=== PATIENT | male | born 1980 | race Caucasian/White ===

== ENCOUNTER 2021-10-03 08:53 | Emergency (ER) | payer BC, SELFPAY ==
--- NOTE | ~2021-10-03 | XR_ITS ---
XR chest 1V portable DATE: 10/03/2021 10:33 INDICATION: Cough, shortness of breath TECHNIQUE: Portable upright AP chest on 10/03/2021 at 1027 hours COMPARISON: 02/18/2015 PA and lateral views FINDINGS: No pulmonary infiltrate or consolidation, pleural effusion or pulmonary vascular congestion or pneumothorax is detected. Heart size appears within normal limits. Included skeletal structures are unremarkable other than mild degenerative spurring and levoscoliosis of the thoracic spine. IMPRESSION: No active cardiopulmonary disease Reviewed, dictated and finalized at location B.
[2021-10-03 09:01] VITALS: BP 107/81; PULSE 62; RESP 16; TEMP 36.3; O2SAT 100
[2021-10-03 09:10] VITALS: PULSE 62
[2021-10-03 09:13] VITALS: O2SAT 97
--- NOTE | 2021-10-03 09:28 | ECG_ITS ---
Measurements Intervals [place] Rate: 63 P: 38 W[place]: 122 QRS: 9 QRSD: 89 T: 12 QT: 389 QTc: 400 Interpretive Statements SINUS RHYTHM VOLTAGE CRITERIA FOR LVH BORDERLINE ECG Electronically Signed On 10-03-2021 16:42:18 CDT by Josesito Ayala D.O.
[2021-10-03] MEDS: SODIUM CHLORIDE 0.9% IV 1,000 ML 999 ML IV CONT (09:38)
[2021-10-03 09:52] LABS: Basophils Percent Auto 0.3 % (0.2-1.2); Eosinophils Percent Auto 0.5 % (0-4.4); Hematocrit 44.9 % (42.0-52.0); Hemoglobin 15.1 g/dL (14.0-18.0); Immature Granulocyte Absolute 0.01 K/mm3 (0.00-0.031); Immature Granulocyte Percent A 0.1 % (0-0.5); Lymphocytes Absolute Auto 2.44 K/mm3 (0.9-3.2); Lymphocytes Percent Auto 28.3 % (18.3-44.2); Mean Corpuscular HGB Conc 33.6 g/dl (32-36); Mean Corpuscular Hemoglobin 30.4 pg (26-34); Mean Corpuscular Volume 90.5 fl (80-100); Mean Platelet Volume 11.2 fl (7.4-10.4); Monocytes Absolute Auto 1.3 K/mm3 (0.1-0.6); Monocytes Percent Auto 14.5 % (2.6-8.5); Neutrophils Absolute Auto 4.8 K/mm3 (1.3-6.7); Neutrophils Percent Auto 56.3 % (45.5-73.1); Platelet Count Result 213 k/mm3 (150-375); Red Blood Count 4.96 M/mm3 (4.6-6.20); Red Cell Distribution Width 13.1 % (11.5-14.5); White Blood Count 8.6 K/mm3 (4.5-10.0)
[2021-10-03] MEDS: ALBUTEROL SULFATE (*SP) AEROSOL 1 PUFF 2 PUFF INHALATION (09:57)
[2021-10-03 10:02] LABS: Prothrombin Time 12.9 Seconds (11.1-14.7)
[2021-10-03 10:03] LABS: Alanine Aminotransferase 33 U/L (6-50); Albumin Level 4.6 g/dL (3.5-5.1); Alkaline Phosphatase 48 U/L (38-126); Anion Gap 5 mmol/L (8-16); Aspartate Amino Transferase 33 U/L (17-59); Bilirubin,Total 0.5 mg/dL (0.2-1.3); Blood Urea Nitrogen 14 mg/dL (9-20); Calcium 9.8 mg/dL (8.4-10.2); Carbon Dioxide 31 mmol/L (22-30); Chloride 103 mmol/L (98-107); Estimated CRCL calculation 70 ml/min; Estimated Glomerular Filt Rate > 60; Glucose 103 mg/dL (65-110); Partial Thromboplastin Time 26.6 SECONDS (22.3-36.8); Potassium 4.1 mmol/L (3.4-5.0); Sodium 139 mmol/L (137-145)
[2021-10-03 10:05] VITALS: PULSE 64; RESP 18
[2021-10-03 10:06] LABS: D Dimer 0.41 ug/mL (<0.48)
[2021-10-03 10:14] LABS: Alveolar/Arterial O2 Gradient 16.8 mmHg; Base Excess ABG -0.6 mEq/l (+/-2.0); Carboxyhemoglobin 0.6 % THb (0-2.0); Fractional Inspired Oxygen 21 %; HCO3 ABG 23.9 mEq/l (22.0-26.0); Methemoglobin ABG 0.1 %THb (0-1.5); Oxygen Content ABG 19.4 %vol (16.0-22.0); Oxygen Saturation ABG 96.6 % (95.0-100.0); Oxyhemoglobin 95.6 % THb (90.0-100.0); PCO2 ABG 38.8 mmHg (35.0-45.0); PO2 ABG 86.5 mmHg (80.0-100.0); PO2 FiO2 Ratio Arterial Blood 4.12 %; Reduced Hemoglobin 3.7 %THb (0-5.0); Total Hemoglobin 14.4 g/dL (12.0-18.0); pH ABG 7.407 (7.350-7.450)
[2021-10-03 10:15] LABS: Troponin I < 0.012 ng/mL (0.000-0.034)
[2021-10-03 10:15] LABS: Device ROOM AIR; Modified Allen's Test Pass; Site Drawn RIGHT RADIAL
[2021-10-03 10:20] VITALS: BP 121/85; PULSE 68; RESP 22; O2SAT 97
--- NOTE | 2021-10-03 11:19 | ED.SOB ---
HPI - SOB/Dyspnea General Chief Complaint: Shortness of Breath/Dyspnea Stated Complaint: + COVID, labored breathing Time Seen by Provider: 10/03/21 09:09 Source: patient and RN notes reviewed Mode of arrival: ambulatory Limitations: no limitations History of Present Illness HPI Narrative: This is a 41 year old male with history of PTSD , anxiety and depression who presents for evaluation of shortness of breath. Patient has been having body aches, fatigue, cough, congestion since Wednesday. He tested positive for covid with an at home test yesterday. Today he was walking down the stairs and he started coughing bad. He reports he was feeling short of breath at that time. She has chest pain on deep inspiration. He reports cough is productive with yellow phlegm. He denies nausea , vomiting, diarrhea. He has received covid vaccination and booster. Related Data Home Medications Medication Instructions Recorded Confirmed buspirone 15 mg 1XD 10/03/21 10/03/21 escitalopram oxalate 20 mg tablet mg 10/03/21 Allergies Allergy/AdvReac Type Severity Reaction Status Date / Time Penicillins Allergy Unknown Unknown Verified 10/03/21 09:08 Review of Systems Review of Systems: All systems reviewed & are unremarkable except as noted in HPI and below Constitutional: Constitutional: Reports chills and Reports fatigue Eyes: Eyes: Denies change in vision ENT: Denies dizziness, Reports nasal congestion and Denies sore throat Cardiovascular: Cardiovascular: Reports chest pain, Denies rapid heart rate and Denies radiating jaw, neck or arm pain Respiratory: Respiratory: Reports chest congestion, Reports cough, Reports dyspnea and Denies wheezing Gastrointestinal: Gastrointestinal: Denies abdominal pain, Denies nausea and Denies vomiting [facility] Past Medical History Medical History (Updated 10/03/21 @ 11:37 by Angelia Thomas MD) Anxiety Depression PTSD (post-traumatic stress disorder) Surgical History Surgical History (Updated 10/03/21 @ 11:33 by Angelia Thomas MD) No pertinent past surgical history Social History Social History (Updated 10/03/21 @ 11:33 by Angelia Thomas MD) Smoking status: Never smoker Alcohol intake: current Substance use: never Exam Const: General: alert Orientation/consciousness: patient oriented x3 Limitations: no limitations Other: appears to not feel well, but nontoxic appearing HENMT: Head: normal to inspection Ears: external ears normal Face and sinus: normal facial exam Mouth: Yes Normal oral and palatal mucosa present Throat: posterior oropharynx normal Eyes: Pupils: Equal, round and reactive pupils present EOM: EOMs intact bilaterally Chest: Chest palpation & inspection: normal inspection of the chest Resp: Effort & Inspection: normal respiratory effort Auscultation: clear to auscultation bilaterally and breath sounds present Cardio: Rate: regular rate Rhythm: regular rhythm Heart sounds: no murmurs GI: GI Palp: Yes Soft to palpation, No Tenderness to palpation present (GI), No Guarding due to palpation present (GI) and No Rigid due to palpation Auscultation: normal bowel sounds Back/Spine/Pelvis: Back: no CVA tenderness Skin: General skin exam: normal color Rashes: no rashes Neuro: General: patient oriented x3 and CN's II-XI intact bilaterally Cranial nerves: Yes Nystagmus not present Speech: normal speech Psych: Mental Status: mental status grossly normal Affect: normal affect Attitude: cooperative Course Reevaluation(s) Reevaluation #1: I Discussed with patient that labs are unremarkable. Chest xray does not show pneumonia. He was given albuterol MDI. I Discussed discharge plan. He was able to ambulate without distress. Oxygen saturation remained above 92%. Date: 10/03/21 Time: 11:34 Vital Signs Vital signs: Vital Signs Temperature 97.3 F L 10/03/21 09:01 Pulse Rate 62 10/03/21 09:01 Respiratory Rate 16 10/03/21 0
[2021-10-03 11:49] VITALS: BP 138/78; PULSE 62; RESP 17; O2SAT 98
== END 2021-10-03 11:51 | disposition home or self-care (01) ==
PROVIDERS: Emergency Provider General Practice
DX: U07.1 COVID-19 (principal); F43.10 Post-traumatic stress disorder, unspecified; F41.9 Anxiety disorder, unspecified; F32.A Depression, unspecified
CPT/HCPCS: 36415; 36600; 71045; 80053; 82375; 82805; 83050; 84484; 85025; 85380; 85610; 85730; 93005; 94640; 99284; A9270; J7030

== ENCOUNTER 2022-08-06 14:12 | Emergency (ER) | payer BC, SELFPAY ==
[2022-08-06 14:13] VITALS: BP 119/84; PULSE 69; RESP 16; TEMP 36.4; O2SAT 100
--- NOTE | 2022-08-06 15:24 | ED.LOWEXIN ---
HPI - Extremity Injury (Lower) General Chief Complaint: Extremity Injury, Lower Stated Complaint: right knee pain Time Seen by Provider: 08/06/22 14:28 History of Present Illness HPI Narrative: 42-year-old male reports for evaluation of right knee pain after an injury that occurred 1 week ago. Patient states he was cutting a tree branch while on a ladder, the branch began to fall and hit the medial aspect of his knee and distal thigh. Patient states since then he has had increased pain with squatting and in a [id number] position. He denies difficulty walking, fever, swelling, paresthesias. States he did not encounter a popping sensation and does not think he dislocated his knee. Denies other injury required in the fall. States he is up-to-date on his tetanus. Related Data Home Medications Medication Instructions Recorded Confirmed buspirone 15 mg 1XD 10/03/21 10/03/21 escitalopram oxalate 20 mg tablet mg 10/03/21 Allergies Allergy/AdvReac Type Severity Reaction Status Date / Time Penicillins Allergy Unknown Unknown Verified 08/06/22 14:12 Review of Systems Review of Systems: CONSTITUTIONAL: Denies fever, chills EYES: Denies visual changes, redness, or discharge. ENT: Denies rhinorrhea, congestion, sore throat, or otalgia. CARDIOVASCULAR: Denies chest pain, palpitations, or edema. RESPIRATORY: Denies cough or dyspnea. GASTROINTESTINAL: Denies abdominal pain, nausea, vomiting, or diarrhea. GENITOURINARY: Denies dysuria or hematuria. SKIN: Denies rash or itching. MUSCULOSKELETAL: See HPI NEUROLOGIC: Denies headache, numbness, dizziness, or weakness. PSYCHIATRIC: Denies anxiety or depression. [facility] Past Medical History Medical History Anxiety Depression PTSD (post-traumatic stress disorder) Surgical History Surgical History No pertinent past surgical history Social History Social History Smoking status: Never smoker Alcohol intake: current Substance use: never Exam Narrative: GENERAL: Well-appearing, in no acute distress. HEAD: Normocephalic NECK: Supple. CHEST: No respiratory distress. Clear to auscultation, no adventitious breath sounds. HEART: Regular rate and rhythm. No murmur heard. Normal peripheral pulses. ABDOMEN: Soft, nontender, normal active bowel sounds. EXTREMITIES: RLE: Tenderness to the lateral joint line of the knee. Tenderness to the proximal tibia and tibial tuberosity with mild overlying yellow ecchymosis. Full range of motion of knee. Negative anterior posterior drawer. No laxity with varus or valgus stress. No tenderness to remainder of knee. DP pulse 2+. Cap refill less than 2. Sensation intact. Patient ambulatory without difficulty. SKIN: Warm, dry, no rash. NEURO: No focal deficits. Alert and oriented x3. PSYCH: Normal mood and affect. Course Vital Signs Vital signs: Vital Signs Temperature 97.5 F L 08/06/22 14:13 Pulse Rate 69 08/06/22 14:13 Respiratory Rate 16 08/06/22 14:13 Blood Pressure 119/84 08/06/22 14:13 Pulse Oximetry 100 08/06/22 14:13 Oxygen Delivery Room Air 08/06/22 14:13 Temperature 97.5 F L 08/06/22 14:13 Pulse Rate 69 08/06/22 14:13 Respiratory Rate 16 08/06/22 14:13 Blood Pressure 119/84 08/06/22 14:13 Pulse Oximetry 100 08/06/22 14:13 Oxygen Delivery Room Air 08/06/22 14:13 MDM - Extremity Injury (Lower) MDM Narrative Medical decision making narrative: 42-year-old male reports for evaluation of right knee pain after he injured it 1 week ago while cutting down a tree and the branch hit the medial aspect of his right knee. Vitals stable. Exam reveals tenderness to the lateral joint line and proximal tibia with overlying healing ecchymosis to the tibia. He is neurovascularly intact. Ligamentous exams normal.
== END 2022-08-06 15:38 | disposition home or self-care (01) ==
PROVIDERS: Emergency Provider Physician Assistant
DX: S80.01XA Contusion of right knee, initial encounter (principal); F41.9 Anxiety disorder, unspecified; F32.A Depression, unspecified; F43.10 Post-traumatic stress disorder, unspecified; W20.8XXA Other cause of strike by thrown, projected or falling object, initial encounter
CPT/HCPCS: 73562; 99283

== ENCOUNTER 2023-12-26 08:45 | Emergency (ER) | payer BC, SELFPAY ==
--- NOTE | ~2023-12-26 | XR_ITS ---
EXAMINATION: XR chest 2V DATE: 12/26/2023 09:28 INDICATION: Cough and shortness of breath. TECHNIQUE: Frontal and lateral views of the chest were obtained. COMPARISON: Chest single view 10/03/2021 FINDINGS: There are airspace opacities in posterior segment right upper lobe, consistent with pneumon ia. No pleural effusion or pneumothorax. The heart size is normal. IMPRESSION: 1. Right upper lobe pneumonia. Reviewed, dictated and finalized at location A.
[2023-12-26 08:54] VITALS: BP 103/72; PULSE 86; RESP 16; TEMP 36.3; O2SAT 97
--- NOTE | 2023-12-26 09:07 | ED.URI ---
HPI - URI/Sore Throat General Chief Complaint: Upper Respiratory Infection Stated Complaint: Cold Symptoms Time Seen by Provider: 12/26/23 09:12 Source: patient Mode of arrival: ambulatory Limitations: no limitations History of Present Illness HPI Narrative: 43 y/o male presented for c/o cough, chest congestion, sob and wheezing, and fever/chills. Onset 5 days. Temp up to 102. Also reports fatigue, nasal congestion and headache. Taking DayQuil and ibuprofen. Tested negative for covid x2. Related Data Home Medications Medication Instructions Recorded Confirmed buspirone 15 mg 1XD 10/03/21 10/03/21 escitalopram oxalate 20 mg tablet mg 10/03/21 Allergies Allergy/AdvReac Type Severity Reaction Status Date / Time Penicillins Allergy Unknown Unknown Verified 08/06/22 14:12 Review of Systems Review of Systems: CONSTITUTIONAL: reports fatigue body aches, fever, chills, sweats. EYES: Denies visual changes, redness, or discharge. ENT: reports rhinorrhea, congestion, otalgia. CARDIOVASCULAR: Denies chest pain, palpitations, or edema. RESPIRATORY: Reports cough, sob, wheezing. SKIN: Denies rash, itching, or wounds. MUSCULOSKELETAL: Denies back pain, joint pain, or myalgia. NEUROLOGIC: reports headache All systems reviewed & are unremarkable except as noted in HPI and below PMFSH Past Medical History Medical History Anxiety Depression PTSD (post-traumatic stress disorder) Surgical History Surgical History No pertinent past surgical history Social History Social History Smoking status: Never smoker Alcohol intake: current Substance use: never Comments At time of signature, I have reviewed and agree with nursing past medical, surgical, social and family history unless otherwise noted. Please see nursing chart for further information. There is no relevant family history pertinent to the presenting complaint Exam Narrative: GENERAL: mildly ill-appearing, nontoxic in no acute distress. EYES: EOMI. No redness or drainage. Conjunctivae normal. ENT: Mucous membranes pink and moist. Mild rhinorrhea. TMs normal bilaterally. Throat normal. Uvula midline. CHEST: No respiratory distress. Coarse and scattered wheezing to bases, right > Left. Difficulty taking full breath due to cough. HEART: Regular rate and rhythm. No murmur appreciated. SKIN: Warm, dry, no rash. Capillary refill normal. Normal skin turgor. NEURO: Alert and oriented x3. Gait steady. Course Course Emergency Course: Patient is aware of diagnosis, understands and agrees to treatment plan. Anticipatory guidance given. Patient agrees to follow-up as directed and is aware of reasons to seek care at the emergency department. Portions of this record may have been created with voice recognition software Level of Care: Express Care Visit Vital Signs Vital signs: Vital Signs Temperature 97.4 F L 12/26/23 08:54 Pulse Rate 86 12/26/23 08:54 Respiratory Rate 16 12/26/23 08:54 Blood Pressure 103/72 12/26/23 08:54 Pulse Oximetry 97 12/26/23 08:54 Temperature 97.4 F L 12/26/23 08:54 Pulse Rate 86 12/26/23 08:54 Respiratory Rate 16 12/26/23 08:54 Blood Pressure 103/72 12/26/23 08:54 Pulse Oximetry 97 12/26/23 08:54 MDM - URI/Sore Throat MDM Narrative Medical decision making narrative: Discussed physical exam findings and CXR. Reviewed Rx, IS provided; Advised supportive measures and signs/symptoms to go to the ER. Pt is appropriate for outpt treatment and f/u. Differential Diagnosis Differential diagnosis: Likely upper respiratory infection, sinusitis, viral infection, bronchitis, influenza and pharyngitis Lab Data Labs: Lab Results 12/26/23 Range/Units 09:39 POC Influenza A Ag Negative (Negative) POC Influenza B Ag Negative (Negative) Imaging Data Radiologist's impression: Patient: Teodoro Aguirre : 1980 MR#: [id number] Age: 43 Acct:[id number] Loc: [id number] ADM Date: 12/26/23Attending Dr: Ordering Physician: Brielle Guillaume APRN Date of Service: 12/26/23 Procedure(s): XR chest 2V Accession Number(s): [id number] cc: Brielle Guillaume APRN; [employer] PROFESSOR PHYSICIAN~ EXAMINATION: XR chest 2V DATE: 12/26/2023 09:28 INDICATION: Cough and shortness of breath. TECHNIQUE: Frontal and lateral views of the chest were obtained. COMPARISON: Chest single view 10/03/2021 FINDINGS: There are airspace opacities in posterior segment right upper lobe, consistent with pneumonia. No pleural effusion or pneumothorax. The heart size is normal. IMPRESSION: 1. Right upper lobe pneumonia. Discharge Plan Discharge Clinical Impression: Pneumonia involving right lung Patient Disposition: Home, Self-Care Condition: Stable Instructions: Antibiotic Form, Pneumonia (ED) Additional Instructions: Pneumonia is a lung infection that can cause a fever, cough, and trouble breathing. Take antibiotics as directed until complete. Eat small frequent meals. Get lots of rest and drink fluids. Use the incentive spirometer 10 times every hour while you are awake Albuterol inhaler as needed for shortness of breath/wheezing Call your Primary Care Doctor tomorrow and make a follow-up appointment in 3 days. Go to the ER immediately for any worsening symptoms or concerns Prescriptions: New prednisone 20 mg tablet 20 mg PO DAILY Qty: 18 0RF Rx Instructions: take 3 tablets daily for 3 days, then 2 tablets daily for 3 days then 1 tablet daily for 3 days levofloxacin 750 mg tablet 750 mg PO DAILY Qty: 7 0RF albuterol sulfate 90 mcg/actuation HFA aerosol inhaler 2 inh inhalation QID PRN (Reason: shortness of breath or wheezing) Qty: 8.5 0RF No Action escitalopram oxalate 20 mg Tablet buspirone 15 mg 1XD Follow-up/Referrals: PHYSICIAN,[employer]GHT PROFESSOR [Primary Care Provider] -
[2023-12-26 09:41] LABS: EDINFLUASCREEN Negative (Negative); EDINFLUBSCREEN Negative (Negative)
[2023-12-26 12:34] LABS: EDCOVIDSCREEN Negative (Negative)
== END 2023-12-26 09:59 | disposition home or self-care (01) ==
PROVIDERS: Emergency Provider Nurse Practitioner Family
DX: J18.1 Lobar pneumonia, unspecified organism (principal); Z20.822 Contact with and (suspected) exposure to COVID-19; F41.9 Anxiety disorder, unspecified; F32.A Depression, unspecified; F43.10 Post-traumatic stress disorder, unspecified
CPT/HCPCS: 71046; 87426; 87804; 99213; G0463